=== PATIENT | female | born 1955 | race Caucasian/White ===

== ENCOUNTER 2017-04-07 11:16 | Emergency (ER) | payer SELFPAY ==
[2017-04-07 11:27] VITALS: BP 151/87; PULSE 75; TEMP 98.2; BMI 24.0
--- NOTE | 2017-04-07 12:18 | PDOC ---
History of Present Illness - General Chief Complaint: Pain, Acute Stated Complaint: RT ANKLE/ LEG PAIN Time Seen by Provider: 04/07/17 12:09 History Source: Patient Exam Limitations: No Limitations - History of Present Illness Initial Comments: 04/07/17 12:36 patient complaints of pain to her right second toe. Denies knowledge of injury, or changes in exercise/shoe wear. States has suffered from athlete's foot for many months and has used [id number] creams but is uncertain as to cause of this toe pain. States it became red, swollen and very tender 2 days ago and is progressively worsening. Works as home health attendant Occurred: reports: yesterday Severity: reports: mild, moderate Pain Location: reports: lower extremity (right 2nd toe) Method of Injury: Yes: unknown Modifying Factors: improves with: None Associated Symptoms (Fall): denies symptoms Past History - Travel Traveled outside of the country in the last 30 days: No Close contact w/someone who was outside of country & ill: No - Past Medical History Allergies/Adverse Reactions: Allergies Allergy/AdvReac Type Severity Reaction Status Date / Time No Known Allergies Allergy Verified 04/07/17 11:24 Home Medications: Ambulatory Orders Fluconazole [Diflucan -] 50 mg PO ONCE #2 tablet 04/07/17 Fluconazole [Diflucan -] 100 mg PO ONCE #2 tablet 04/07/17 NK [No Known Home Medication] 04/07/17 Sulfamethoxazole/Trimethoprim [Bactrim *Ds*] 1 each PO BID #14 tablet 04/07/17 - Psycho/Social/Smoking Cessation Hx Anxiety: No Suicidal Ideation: No Smoking History: Current every day smoker Have you smoked in the past 12 months: Yes Number of Cigarettes Smoked Daily: 10 Information on smoking cessation initiated: No Hx Alcohol Use: No Drug/Substance Use Hx: No Substance Use Type: None Review of Systems - Review of Systems Able to Perform ROS?: Yes Is the patient limited Divehi proficient: Yes Constitutional: Yes: See HPI. No: Symptoms Reported, Chills, Fever HEENTM: No: Symptoms Reported Musculoskeletal: Yes: Symptoms Reported, See HPI, Joint Swelling (right 2nd toe) , Joint Stiffness Integumentary: Yes: See HPI, Erythema (t) All Other Systems: Reviewed and Negative *Physical Exam - Vital Signs Last Vital Signs Temp Pulse Resp BP Pulse Ox 98.2 F 75 18 151/87 100 04/07/17 11:25 04/07/17 11:25 04/07/17 11:25 04/07/17 11:25 04/07/17 11:25 - Physical Exam General Appearance: Yes: Appropriately Dressed, Apparent Distress HEENT: positive: CASSIUS, Normal ENT Inspection, TMs Normal, Pharynx Normal Respiratory/Chest: positive: Lungs Clear Musculoskeletal: negative: Normal Inspection Extremity: positive: Normal Capillary Refill, Normal Range of Motion, Erythema ( swelling and pain to right 2nd toe, with tnedernss extending up to mid metatarsals. Has thick white exudate between all toes of right foot with worese between 2,3.) Integumentary: positive: Normal Color, Erythema, Swelling, Other (pain ) Neurologic: positive: heating engineer II-XII NML intact, Fully Oriented, Alert, Normal Mood/ Affect, Normal Response, Motor Strength 5/5 *DC/Admit/Observation/Transfer Diagnosis at time of Disposition: Recurrent tinea pedis, Cellulitis of toe of right foot - Discharge Dispostion Disposition: HOME Condition at time of disposition: Stable Admit: No - Prescriptions Prescriptions: Sulfamethoxazole/Trimethoprim [Bactrim *Ds*] 1 each PO BID #14 tablet Fluconazole [Diflucan -] 100 mg PO ONCE #2 tablet Fluconazole [Diflucan -] 50 mg PO ONCE #2 tablet - Referrals Referrals: Swati Darnell MD [Staff Physician] - - Patient Instructions Printed Discharge Instructions: DI for Athlete's Foot Additional Instructions: Rest, keep area elevated. Avoid strenuous activity or exercise until wound is healed Use hot soaks to area to bring more blood to the surface and encourage drainage May change dressings as needed to keep clean - Allow water from shower to wash area thoroughly for 2-3 minutes, and pat dry upon exit of shower and replace ointment Change his dressing daily until the wound is completely healed. May use Tylenol or Motrin for mild pain relief Diflucan is a 1 time dose to help resolve the yeast infection between toes Continue clotrimazole cream twice a day until fungus has resolved May use bleach baths: 2 tablespoons in one tub of water and soak for 10 minutes twice a day Bactrim 1 tablet every 12 hours for one week Continue all medications as prescribed Followup with private physician in 2-3 days for wound check Return to emergency Department for worsening swelling, pain, redness, fevers as needed - Post Discharge Activity Work/School Note: Back to Work
== END 2017-04-07 13:02 | disposition home or self-care (01) ==
LOC: JERFT 11:16
DX: B35.3 Tinea pedis (principal); L03.115 Cellulitis of right lower limb; F17.210 Nicotine dependence, cigarettes, uncomplicated
CPT/HCPCS: 73630-TC-RT; 99281-25